=== PATIENT | male | born 1980 | race Caucasian/White ===

== ENCOUNTER 2018-01-27 14:48 | Observation (INO) | payer OTHER ==
[~2018-01-27] VITALS: Ht 190.5 cm; Wt 71.2 kg
[2018-01-27 15:10] LABS: PLATELET COUNT, AUTOMATED 392 K/uL (150-450)
[2018-01-27] MEDS ORDERED: IOPAMIDOL 76% 75 ML INFUS BTL 75 ML ONE (15:13)
[2018-01-27 15:14] LABS: INR 1.01
--- NOTE | 2018-01-27 15:17 | ER Report ---
History and Physical Time Seen By MD: 15:00 Hx. of Stated Complaint: loc due to fall from 10 foot ceiling HPI/ROS CHIEF COMPLAINT: Fall trauma HISTORY OF PRESENT ILLNESS: 37-year-old male who was working approximate 10:30 this morning was working and I ceiling and a drop ceiling about 10 feet high fell through the ceiling onto a hard floor this was witnessed he got up after the fact felt fine warts several hours more was down in the main level when another worker came and found him on the ground his eyes were rolled back to his gurgling gasping for air he had no memory of the event took place complaining of a headache no chest pain O no abdominal pain or discomfort no extremity pain or discomfort patient is amnestic of the fall at the time of presentation to the ER he does remember being at the home his friend brought him here via private vehicle. On arrival emergency department he is immediately placed in a c-collar partial trauma was activated on arrival he is unable to give any additional history but witnesses and bystanders did confirm that he did fall through the ceiling that he was acting normally for a period of several hours and then subsequently became amnestic asking repetitive questions on arrival to the emergency room REVIEW OF SYSTEMS: Respiratory: No cough, no dyspnea. Cardiovascular: No chest pain, no palpitations. Gastrointestinal: No vomiting, no abdominal pain. Musculoskeletal: No back pain. Remainder of the 14 system rev: Yes Allergies: Coded Allergies: No Known Allergies (Verified Allergy, Unknown, 01/27/18) Home Meds No Active Prescriptions or Reported Meds Reviewed Nurses Notes: Yes Old Medical Records Reviewed: Yes Constitutional Vital Sign - Last 24 Hours 01/27/18 01/27/18 14:55 15:27 Temp 98.7 Pulse 110 110 Resp 16 12 B/P (MAP) 140/91 128/74 (92) Pulse Ox 97 96 O2 Delivery Room Air Room Air Physical Exam General Appearance: The patient is alert, has no immediate need for airway protection and no current signs of toxicity. Asking repetitive questions amnesti c of the event Eyes: Pupils pinpoint 1-2 mm minimally reactive Respiratory: Chest is non tender, lungs are clear to auscultation. Cardiac: regular rate and rhythm [ ] Gastrointestinal: Abdomen is soft and non tender, no masses, bowel sounds normal. Musculoskeletal: Normal [Neck is supple and non tender.] [Extremities have full range of motion and are non tender.] [Skin:] [No rashes or lesions.] [ ] [DIFFERENTIAL DIAGNOSIS: After history and physical exam differential diagnosis was considered for] [ closed head injury intracranial bleed cervical fracture intra-abdominal bleed or trauma] Medical Decision Making Data Points Result Diagram: 01/27/18 1450 01/27/18 1450 Laboratory Hematology Test 01/27/18 14:50 01/27/18 16:00 Red Blood Count 5.16 M/uL (4.00-5.60) Mean Corpuscular Volume 91.8 fL (80.0-96.0) Mean Corpuscular Hemoglobin 31.7 pg (26.0-33.0) Mean Corpuscular Hemoglobin Concent 34.5 g/dL (32.0-36.0) Red Cell Distribution Width 13.0 % (11.5-14.5) Mean Platelet Volume 8.3 fL (7.2-11.1) Neutrophils (%) (Auto) 63.1 % (39.4-72.5) Lymphocytes (%) (Auto) 28.8 % (17.6-49.6) Monocytes (%) (Auto) 7.0 % (4.1-12.4) Eosinophils (%) (Auto) 0.5 % (0.4-6.7) Basophils (%) (Auto) 0.6 % (0.3-1.4) Nucleated RBC Relative Count (auto) 0.1 /100WBC Neutrophils # (Auto) 6.4 K/uL (2.0-7.4) Lymphocytes # (Auto) 2.9 K/uL (1.3-3.6) Monocytes # (Auto) 0.7 K/uL (0.3-1.0) Eosinophils # (Auto) 0.1 K/uL (0.0-0.5) Basophils # (Auto) 0.1 K/uL (0.0-0.1) Nucleated RBC Absolute Count (auto) 0.01 K/uL Prothrombin Time 13.3 seconds (12.0-14.4) Prothromb Time International Ratio 1.01 Activated Partial Thromboplast Time 22 seconds (23-35) Sodium Level 139 mmol/L (137-145) Potassium Level 3.3 mmol/L (3.5-5.0) Chloride Level 99 mmol/L (98-107) Carbon Dioxide Level 21 mmol/L (22-30) Blood Urea Nitrogen 11 mg/dl (9-21) Creatinine 1.00 mg/dl (0.66-1.25) Glomerular Filtration Rate Calc > 60.0 Random Glucose 105 mg/dl (75-110) Lactate 8.5 mmol/L (0.7-2.1) Calcium Level 9.8 mg/dl (8.4-10.2) Total Bilirubin 0.6 mg/dl (0.2-1.3) Aspartate Amino Transf (AST/SGOT) 32 U/L (0-35) Alanine Aminotransferase (ALT/SGPT) 41 U/L (0-56) Alkaline Phosphatase 57 U/L (0-126) Total Protein 7.7 g/dl (6.3-8.2) Albumin 4.7 g/dl (3.5-5.0) Lipase 101 U/L (23-300) Acetaminophen Level < 10 ug/ml Serum Alcohol < 10 mg/dl Urine Color Yellow Urine Clarity Clear Urine pH 5.0 pH (4.8-9.5) Urine Specific [place] 1.019 Urine Protein Negative mg/dL (NEGATIVE) Urine Glucose (UA) Negative mg/dL (NEGATIVE) Urine Ketones Negative mg/dL (NEGATIVE) Urine Blood Negative (NEGATIVE) Urine Nitrite Negative (NEGATIVE) Urine Bilirubin Negative (NEGATIVE) Urine Urobilinogen Negative mg/dL (0.2-1.9) Urine Leukocyte Esterase Negative (NEGATIVE) Urine RBC None /HPF (0-2/HPF) Urine WBC <1 /HPF (0-5/HPF) Urine Squamous Epithelial Cells None /LPF (NONE-FEW) Urine Bacteria Negative /HPF (NONE-FEW) Urine Granular Casts Few /LPF (NONE) Urine Mucus None /HPF (NONE-FEW) Urine Opiates Screen Negative Urine Barbiturates Screen Negative Ur Tricyclic Antidepressants Screen Negative Urine Phencyclidine Screen Negative Urine Amphetamines Screen Negative Urine Benzodiazepines Screen Negative Urine Cocaine Screen Negative Urine Cannabinoids Screen Negative Chemistry Test 01/27/18 14:50 01/27/18 16:00 White Blood Count 10.1 k/uL (4.5-11.0) Red Blood Count 5.16 M/uL (4.00-5.60) Hemoglobin 16.3 g/dL (14.0-18.0) Hematocrit 47.3 % (42.0-52.0) Mean Corpuscular Volume 91.8 fL (80.0-96.0) Mean Corpuscular Hemoglobin 31.7 pg (26.0-33.0) Mean Corpuscular Hemoglobin Concent 34.5 g/dL (32.0-36.0) Red Cell Distribution Width 13.0 % (11.5-14.5) Platelet Count 392 K/uL (150-450) Mean Platelet Volume 8.3 fL (7.2-11.1) Neutrophils (%) (Auto) 63.1 % (39.4-72.5) Lymphocytes (%) (Auto) 28.8 % (17.6-49.6) Monocytes (%) (Auto) 7.0 % (4.1-12.4) Eosinophils (%) (Auto) 0.5 % (0.4-6.7) Basophils (%) (Auto) 0.6 % (0.3-1.4) Nucleated RBC Relative Count (auto) 0.1 /100WBC Neutrophils # (Auto) 6.4 K/uL (2.0-7.4) Lymphocytes # (Auto) 2.9 K/uL (1.3-3.6) Monocytes # (Auto) 0.7 K/uL (0.3-1.0) Eosinophils # (Auto) 0.1 K/uL (0.0-0.5) Basophils # (Auto) 0.1 K/uL (0.0-0.1) Nucleated RBC Absolute Count (auto) 0.01 K/uL Prothrombin Time 13.3 seconds (12.0-14.4) Prothromb Time International Ratio 1.01 Activated Partial Thromboplast Time 22 seconds (23-35) Glomerular Filtration Rate Calc > 60.0 Lactate 8.5 mmol/L (0.7-2.1) Calcium Level 9.8 mg/dl (8.4-10.2) Total Bilirubin 0.6 mg/dl (0.2-1.3) Aspartate Amino Transf (AST/SGOT) 32 U/L (0-35) Alanine Aminotransferase (ALT/SGPT) 41 U/L (0-56) Alkaline Phosphatase 57 U/L (0-126) Total Protein 7.7 g/dl (6.3-8.2) Albumin 4.7 g/dl (3.5-5.0) Lipase 101 U/L (23-300) Acetaminophen Level < 10 ug/ml Serum Alcohol < 10 mg/dl Urine Color Yellow Urine Clarity Clear Urine pH 5.0 pH (4.8-9.5) Urine Specific [place] 1.019 Urine Protein Negative mg/dL (NEGATIVE) Urine Glucose (UA) Negative mg/dL (NEGATIVE) Urine Ketones Negative mg/dL (NEGATIVE) Urine Blood Negative (NEGATIVE) Urine Nitrite Negative (NEGATIVE) Urine Bilirubin Negative (NEGATIVE) Urine Urobilinogen Negative mg/dL (0.2-1.9) Urine Leukocyte Esterase Negative (NEGATIVE) Urine RBC None /HPF (0-2/HPF) Urine WBC <1 /HPF (0-5/HPF) Urine Squamous Epithelial Cells None /LPF (NONE-FEW) Urine Bacteria Negative /HPF (NONE-FEW) Urine Granular Casts Few /LPF (NONE) Urine Mucus None /HPF (NONE-FEW) Urine Opiates Screen Negative Urine Barbiturates Screen Negative Ur Tricyclic Antidepressants Screen Negative Urine Phencyclidine Screen Negative Urine Amphetamines Screen Negative Urine Benzodiazepines Screen Negative Urine Cocaine Screen Negative Urine Cannabinoids Screen Negative Coagulation Test 01/27/18 14:50 Prothrombin Time 13.3 seconds Prothromb Time International Ratio 1.01 Activated Partial Thromboplast Time 22 seconds Toxicology Test 01/27/18 14:50 01/27/18 16:00 Acetaminophen Level < 10 ug/ml Serum Alcohol < 10 mg/dl Urine Opiates Screen Negative Urine Barbiturates Screen Negative Ur Tricyclic Antidepressants Screen Negative Urine Phencyclidine Screen Negative Urine Amphetamines Screen Negative Urine Benzodiazepines Screen Negative Urine Cocaine Screen Negative Urine Cannabinoids Screen Negative Urinalysis Test 01/27/18 16:00 Urine Color Yellow Urine Clarity Clear Urine pH 5.0 pH (4.8-9.5) Urine Specific [place] 1.019 Urine Protein Negative mg/dL (NEGATIVE) Urine Glucose (UA) Negative mg/dL (NEGATIVE) Urine Ketones Negative mg/dL (NEGATIVE) Urine Blood Negative (NEGATIVE) Urine Nitrite Negative (NEGATIVE) Urine Bilirubin Negative (NEGATIVE) Urine Urobilinogen Negative mg/dL (0.2-1.9) Urine Leukocyte Esterase Negative (NEGATIVE) Urine RBC None /HPF (0-2/HPF) Urine WBC <1 /HPF (0-5/HPF) Urine Squamous Epithelial Cells None /LPF (NONE-FEW) Urine Bacteria Negative /HPF (NONE-FEW) Urine Granular Casts Few /LPF (NONE) Urine Mucus None /HPF (NONE-FEW) ED Course/Re-evaluation ED Course ED clinical course 37-year-old male fell through a ceiling onto a floor approximately 10-12 feet is amnestic of the 2 hours after the event which was reportedly acting normal however was seen at once again having a seizure type activity again is amnestic to the event he is amnestic of the hours after the event CT scan chest abdomen and pelvis including C-spine and head were all negative his baseline labs demonstrated an elevated lactic acid I added a methanol ethanol looking for an indication of the lactic acidosis could also be caused from the questionable versus factual's seizure activity patient will be admitted by trauma due to a diagnosis of closed head injury amnesia of the event and observe and with the elevated lactic acid Decision to Disposition Date: Jan 27, 2018 Decision to Disposition Time: 16:32 Depart Departure Latest Vital Signs Vital Signs Date Time Temp Pulse Resp B/P (MAP) Pulse Ox O2 Delivery O2 Flow Rate FiO2 01/27/18 15:27 110 12 128/74 (92) 96 Room Air 01/27/18 14:55 98.7 Impression: Primary Impression: Closed head injury with brief loss of consciousness Condition: Improved Disposition: Admitted from ER New Scripts No Active Prescriptions or Reported Meds JAMIE MADDOX MD Jan 27, 2018 15:17
--- NOTE | 2018-01-27 15:18 | RADIOLOGY IMAGING REPORT ---
FACILITY: [facility] PATIENT NAME: Perfecto Lowe : 1980 MR: [id number] V: [id number] EXAM DATE: [id number] ORDERING PHYSICIAN: JAMIE MADDOX TECHNOLOGIST: Location: [facility] Patient: Perfecto Lowe : 1980 Visit/Account:[id number] Date of Sevice: 01/27/2018 Exam type: CHEST SINGLE AP History: Trauma, fell from height Comparison: None. Findings: The lungs are free of acute effusions, infiltrates or edema. The cardiac silhouette is normal in siz e. The trachea is in midline. There is no evidence of a pneumothorax or pneumomediastinum. IMPRESSION: 1. No acute cardiopulmonary process is seen Report Dictated By: Soledad Lobato MD at 01/27/2018 3:14 PM Report E-Signed By: Soledad Lobato MD at 01/27/2018 3:15 PM WSN:[email or web address]
[2018-01-27] MEDS ORDERED: DIPHTH/TETANUS/ACEL. PERTUSSIS IM ONLY ONE (16:00)
[2018-01-27] MEDS ORDERED: NS(*) 0.9% 1000 ML BAG 1,000 ML IV ONE (16:05)
--- NOTE | 2018-01-27 16:06 | RADIOLOGY IMAGING REPORT ---
FACILITY: [facility] [place] PATIENT NAME: Perfecto Lowe : 1980 MR: [id number] V: [id number] EXAM DATE: ORDERING PHYSICIAN: JAMIE MADDOX TECHNOLOGIST: [place] [facility] [place] Perfecto Lowe : 1980 Visit/Account:[id number] Date of Sevice: 01/27/2018 HEAD W/O CONTRAST, C-SPINE W/O CONTRAST Provided history: TRAUMA Additional pertinent history: none TECHNIQUE: Imaging was obtained from the skull base through the vertex, followed by spiral scan of th e cervical spine without intravenous contrast. Source images were reformatted in the coronal sagitta l planes. The cervical spine spiral source images were reformatted in the coronal and sagittal planes. One of the following dose optimization techniques was utilized in the performance of this exam: Autom ated exposure control; adjustment of the mA and/or kV according to the patient's size; or use of an i terative reconstruction technique. Specific details can be referenced in the facility's radiology CT exam operational policy. COMPARISON STUDIES: No relevant priors FINDINGS: BRAIN: Brain volume: Normal Acute cortical ischemia: None Chronic cortical and ganglionic ischemia: none significant Hemorrhage: None Masses / edema: None White matter: Normal Vessels: Normal Extra-axial: None significant Calvarium / scalp: Negative Skull base: negative Visualized sinuses / orbits: There is a large old blowout fracture of the left lamina papyracea. No acute edematous change. The defect in the medial wall measures up to 12 mm craniocaudal diameter and 15 mm AP diameter. CERVICAL SPINE: Extra-vertebral soft tissues: negative Acute bone and soft tissue findings: none Chronic / degenerative findings: Minor endplate hypertrophy C3-4, C4-5, C5-6 and C6-7. No obvious he rniation. No significant stenotic disease. IMPRESSION: 1. Normal CT of the brain. No evidence of mass, acute ischemia or hemorrhage. 2. Normal assessment of the cervical spine. 3. Large old blowout fracture left lamina papyracea of the left orbit. Report Dictated By: Selvin Cabrera MD at 01/27/2018 3:56 PM Report E-Signed By: Selvin Cabrera MD at 01/27/2018 4:01 PM WSN:[id number]
--- NOTE | 2018-01-27 16:07 | RADIOLOGY IMAGING REPORT ---
FACILITY: [facility] PATIENT NAME: Perfecto Lowe : 1980 MR: [id number] V: [id number] EXAM DATE: ORDERING PHYSICIAN: JAMIE MADDOX TECHNOLOGIST: Location: [facility] - [place] Patient: Perfecto Lowe : 1980 Visit/Account:[id number] Date of Sevice: 01/27/2018 HEAD W/O CONTRAST, C-SPINE W/O CONTRAST Provided history: TRAUMA Additional pertinent history: none TECHNIQUE: Imaging was obtained from the skull base through the vertex, followed by spiral scan of th e cervical spine without intravenous contrast. Source images were reformatted in the coronal sagitta l planes. The cervical spine spiral source images were reformatted in the coronal and sagittal planes. One of the following dose optimization techniques was utilized in the performance of this exam: Autom ated exposure control; adjustment of the mA and/or kV according to the patient's size; or use of an i terative reconstruction technique. Specific details can be referenced in the facility's radiology CT exam operational policy. COMPARISON STUDIES: No relevant priors FINDINGS: BRAIN: Brain volume: Normal Acute cortical ischemia: None Chronic cortical and ganglionic ischemia: none significant Hemorrhage: None Masses / edema: None White matter: Normal Vessels: Normal Extra-axial: None significant Calvarium / scalp: Negative Skull base: negative Visualized sinuses / orbits: There is a large old blowout fracture of the left lamina papyracea. No acute edematous change. The defect in the medial wall measures up to 12 mm craniocaudal diameter and 15 mm AP diameter. CERVICAL SPINE: Extra-vertebral soft tissues: negative Acute bone and soft tissue findings: none Chronic / degenerative findings: Minor endplate hypertrophy C3-4, C4-5, C5-6 and C6-7. No obvious he rniation. No significant stenotic disease. IMPRESSION: 1. Normal CT of the brain. No evidence of mass, acute ischemia or hemorrhage. 2. Normal assessment of the cervical spine. 3. Large old blowout fracture left lamina papyracea of the left orbit. Report Dictated By: Selvin Cabrera MD at 01/27/2018 3:56 PM Report E-Signed By: Selvin Cabrera MD at 01/27/2018 4:01 PM WSN:[id number]
--- NOTE | 2018-01-27 16:16 | RADIOLOGY IMAGING REPORT ---
FACILITY: [facility] PATIENT NAME: Perfecto Lowe : 1980 MR: [id number] V: [id number] EXAM DATE: ORDERING PHYSICIAN: JAMIE MADDOX TECHNOLOGIST: Location: [facility] Patient: Perfecto Lowe : 1980 Visit/Account:[id number] Date of Sevice: 01/27/2018 CHEST/AB/PELV W/CONTRAST Provided history: trauma Additional pertinent history: Fall from a height TECHNIQUE: Spiral scan was obtained from the lower neck through the proximal thighs with intravenous contrast Contrast dose: 75 mL Isovue 370 intravenously. Source images were reformatted in the coronal and sagittal planes. Additional series performed today: none One of the following dose optimization techniques was utilized in the performance of this exam: Autom ated exposure control; adjustment of the mA and/or kV according to the patient's size; or use of an i terative reconstruction technique. Specific details can be referenced in the facility's radiology CT exam operational policy. COMPARISON STUDIES: No relevant priors FINDINGS: CHEST: Lungs / pleura / vinny: negative Lower neck: negative Mediastinum: negative Heart / pericardium: negative Vessels: negative Lymph nodes: negative Body wall: negative Bones: No acute fracture. There is advanced degeneration L4-5 with right lateralizing endplate spurs that moderately compromise the right foramen. Similar less prominent changes at L3-4. As unilateral left L5 pars defect with secondary degenerative changes, chronic in origin. Hips demonstrate moderate changes of ROSANGELA bilaterally. ABDOMEN PELVIS: Liver/biliary: A potential short laceration along the medial surface of the right lobe of liver at th e level of the upper pole right kidney contains fat with what appears to be a benign cleft and not a laceration. Accounting for that, I see no evidence of acute injury to the liver. Gallbladder and bile ducts negative. Pancreas: Negative Spleen: Negative Adrenal glands: Negative Kidneys / ureters / bladder / genitourinary / retroperitoneum: Negative Bowel / peritoneum / mesenteries: No dilation or acute inflammatory change. No free air. Multiple cir cumscribed mid and upper mesenteric lymph nodes, very likely benign and reactive in origin. Vessels: negative Lymph nodes: negative Body wall: Negative Bones: Per above IMPRESSION: No acute osseous or visceral normality in the chest, abdomen or pelvis. Degenerative changes lower kelly mbar spine and hips per above. Report Dictated By: Selvin Cabrera MD at 01/27/2018 4:04 PM Report E-Signed By: Selvin Cabrera MD at 01/27/2018 4:12 PM WSN:[id number]
[2018-01-27] MEDS ORDERED: NS(*) 0.9% 1000 ML BAG 1,000 ML IV PRN (16:31)
[2018-01-27] MEDS ORDERED: FLUSH 10 ML SYR IVP PRN (16:35)
[2018-01-27] MEDS ORDERED: ACETAMINOPHEN 325 MG TAB PO PRN (16:35)
[2018-01-27] MEDS ORDERED: ONDANSETRON 4 MG/2 ML VIAL IVP PRN (16:35)
[2018-01-27 17:27] VITALS: BP 141/94
[2018-01-27 19:27] VITALS: BP 131/81
[2018-01-27] MEDS: DOCUSATE SODIUM 100 MG CAP PO SCH (20:07)
[2018-01-27] MEDS: FAMOTIDINE 20 MG TAB PO SCH (20:08)
[2018-01-27] MEDS ORDERED: IBUPROFEN 600 MG TAB PO PRN (21:05)
--- NOTE | 2018-01-27 21:13 | Gen Surgery History & Physical ---
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 8 foot fall. He doesn't remember too much of the event. He thinks he lost consciousness. He exhibited repetitive questioning in the ER. His main complaint right now is a mild frontal headache. He had left shoulder and hip pain earlier but these are better. He chews tobacco and uses occasional alcohol but has no other medical problems, has never had surgery, takes no medications, and has no medication allergies that he's aware of. No previous h/o concussion or CHI. He denies vision changes, weakness, numbness, tingling, changes in hearing, tinnitus, malocclusion, chest pain, SOB, abdominal pain, neck pain, or back pain. History Problems: (1) NICOTINE DEPENDENCE, CHEWING TOBACCO, UNCOMPLICATED Status: Chronic Home Meds No Active Prescriptions or Reported Meds Allergies: Coded Allergies: No Known Allergies (Verified Allergy, Unknown, 01/27/18) Review of Systems All Systems Reviewed/Normal: Yes, Except as Noted Exam General Appearance: Alert, Awake, No Acute Distress, Afebrile Neuro: No Gross deficits, Other (CN 2-12 intact, no focal neurologic deficits elsewhere) Eyes: PERRLA ENT: Moist Mucous Membranes, Oropharynx Clear, Posterior Pharynx Clear, Other (minimal ecchymoses on lateral edges of tongue) Neck: No Masses, Other (No c-spine TTP, ROM is normal) Cardiovascular: Regular Rate and Rhythm Respiratory: Clear to Auscultation Chest: No Tenderness GI: Abd Soft and Non-Tender Musculoskeletal: No Weakness/Pain, Other (T/L spine is non-tender without deformity or stepoff) Extremities: Soft and Non Tender, Warm, Perfused, Edema Integumentary: Skin Intact without Lesion / Mass Psych: Alert & Oriented X3, Appropriate Mood & Affect Medical Decision Making Data Points Result Diagram: 01/27/18 1450 01/27/18 1450 Assessment and Plan Problems: (1) Closed head injury with brief loss of consciousness Status: Acute Assessment & Plan: 01/27/18: All labs, imaging completed in ER reviewed, no evidence of acute injury. Pt has suffered a concussion. Lactate was elevated but has come down to normal. Exam is unremarkable. Will admit for observation and neuro checks. Will let him eat. Ibuprofen and tylenol for pain control, headache. Tertiary exam in am. If he does well overnight and exam is unremarkable in the morning then he will be able to go home in the am with post- concussion precautions. Condition stable Time Spent: < 30 min Venous Thromboembolism VTE Risk Physician Assess for VTE Risk: Yes Patient's VTE Risk: Low VTE Diagnostic Test 2 Days Prior to Admit: No Antithrombotics Is Pt On Any Antithrombotics?: No DENNY GE MD Jan 27, 2018 21:13
[2018-01-27 23:32] VITALS: BP 118/82
[2018-01-28 04:41] VITALS: BP 119/77
[2018-01-28 05:43] LABS: PLATELET COUNT, AUTOMATED 289 K/uL (150-450)
[2018-01-28 07:26] VITALS: BP 141/92
--- NOTE | 2018-01-28 07:30 | Short(Outpt) Discharge Summary ---
Discharge Summary Reason for Hosp/Final Diag: (1) Closed head injury with brief loss of consciousness Status: Acute Hospital Course & Plan: 01/27/18: All labs, imaging completed in ER reviewed, no evidence of acute injury. Pt has suffered a concussion. Lactate was elevated but has come down to normal. Exam is unremarkable. Will admit for observation and neuro checks. Will let him eat. Ibuprofen and tylenol for pain control, headache. Tertiary exam in am. If he does well overnight and exam is unremarkable in the morning then he will be able to go home in the am with post- concussion precautions. 01/28/18: Doing well. Mentally clearing. He feels that he's returning to normal. No other complaints this morning. Neuro exam and tertiary exam are unremarkable; no focal neuro deficits, no new findings this morning. Departure Discharge to: Home, Self Care Discharge Instructions Home Meds No Active Prescriptions or Reported Meds Diet: Regular Activity: As Tolerated Special Instructions: You have suffered from a concussion. If you have symptoms such as headaches, nausea, dizziness, memory problems, foggy thinking, etc that last more than 1 week, contact my office at [phone] (my nurse's direct line) so we can evaluate you and see if you need to be referred to a traumatic brain injury specialist. Avoid any activity that can result in another concussion for the next 3 months. You may return to work when you return to normal, clear thinking, no memory or balance symptoms. DENNY GE MD Jan 28, 2018 07:29
[2018-01-28] MEDS: FAMOTIDINE 20 MG TAB PO SCH (08:21)
[2018-01-28] MEDS: DOCUSATE SODIUM 100 MG CAP PO SCH (08:21)
== END 2018-01-28 07:25 | disposition home or self-care (01) ==
LOC: ER 15:12 → INTOOBSV 16:49 → MED 16:49
PROVIDERS: ADMIT Surgery; ATTEND Surgery
DX: S06.899A Other specified intracranial injury with loss of consciousness of unspecified duration, initial encounter (principal)
CPT/HCPCS: 36415; 70450; 71045; 71260; 72125; 74177; 80305; 80320; 80329; 81001; 83605; 83690; 84600; 85025; 85610; 85730; 90471; 90715; 99284; G0378; J7030; Q9967; 82040; 82247; 82310; 82374; 82435; 82565; 82947; 84075; 84132; 84155; 84295; 84450; 84460; 84520